=== PATIENT | male | born 1970 | race American Indian/Alaskan Native ===

== ENCOUNTER 2020-11-26 08:40 | Outpatient (CLI) | payer BC ==
--- NOTE | 2020-11-26 10:16 | XRay Report ---
RIGHT HIP 2 VIEWS INDICATION / CLINICAL INFORMATION: RIGHT HIP PAIN. COMPARISON: None available. FINDINGS: Mild degenerative change. No other significant skeletal abnormality Signer Name: Piero Curran MD [facility] Signed: 11/26/2020 10:11 AM Workstation Name: [id number]
== END 2020-11-26 08:41 | disposition home or self-care (01) ==
LOC: SPVIMAG 08:40
PROVIDERS: ATTEND Family Medicine
DX: M16.11 Unilateral primary osteoarthritis, right hip (principal)

== ENCOUNTER 2021-01-09 08:12 | Outpatient (CLI) | payer BC ==
--- NOTE | 2021-01-09 09:11 | XRay Report ---
LEFT SHOULDER 3 VIEWS INDICATION / CLINICAL INFORMATION: LEFT SHOULDER PAIN M25.512 COMPARISON: None available. FINDINGS: BONES / JOINT(S): No acute fracture or subluxation. No significant arthritis. SOFT TISSUES: No significant abnormality. ADDITIONAL FINDINGS: None. Signer Name: Juan David Martinez MD Signed: 01/09/2021 9:07 AM Workstation Name: [email or web address]
== END 2021-01-09 08:13 | disposition home or self-care (01) ==
LOC: SPVIMAG 08:12
PROVIDERS: ATTEND Urology
DX: M25.512 Pain in left shoulder (principal)